=== PATIENT | female | born 2005 | race Caucasian/White ===

== ENCOUNTER 2024-09-04 21:23 | Emergency (ER) | payer OTHER ==
[~2024-09-04] VITALS: Ht 154.9 cm; Wt 76.4 kg
[2024-09-04 21:35] VITALS: TEMP 98.4
[2024-09-04 22:55] LABS: BASO # 0.0 10^3/uL (0.0-0.2); BASO % 0.3 % (0.0-1.0); EOS # 0.0 10^3/uL (0.0-0.5); EOS % 0.2 % (0.0-3.0); LYMPH # 2.0 10^3/uL (1.5-5.0); LYMPH % 18.4 % (24.0-44.0); MONO # 0.7 10^3/uL (0.0-0.8); MONO % 6.9 % (2.0-8.0); NEUTROPHILS # 7.9 10^3/uL (1.5-8.5); NEUTROPHILS % 73.8 % (36.0-66.0); PLATELET COUNT, AUTOMATED 198 10^3/uL (150-450)
[2024-09-04] MEDS: ONDANSETRON 4MG 2ML VIAL IV ONE (22:56)
[2024-09-04] MEDS: MORPHINE 4 MG/ML 1 ML VIAL IV PRN (22:57)
[2024-09-04 23:09] LABS: INR 1.06
[2024-09-04 23:27] LABS: ALT/SGPT 20 U/L (7.0-40); AST/SGOT 18 U/L (<34); CALCIUM LEVEL 8.4 MG/DL (8.5-10.1); CARBON DIOXIDE LEVEL 22 MMOL/L (20-31); CHLORIDE LEVEL 102 MMOL/L (98-107); CREATININE FOR GFR 0.48 MG/DL (0.55-1.30); GLOMERULAR FILTRATION RATE > 90.0 (>60); POTASSIUM SERUM 3.7 MMOL/L (3.5-5.1); SODIUM LEVEL 138 MMOL/L (136-145)
[2024-09-05 01:20] LABS: PLATELET COUNT, AUTOMATED 172 10^3/uL (150-450)
[2024-09-05 02:00] VITALS: BP 95/50
[2024-09-05 02:08] VITALS: O2SAT 98
[2024-09-05] MEDS ORDERED: PERC5TAB12 PO (02:18)
[2024-09-05] MEDS: OXYCODONE/APAP 5MG/325MG(HOME DOSE PACK) PO ONE (03:00)
== END 2024-09-05 03:03 | disposition home or self-care (01) ==
LOC: M ED 21:23 → EDBD 21:23 → M ED 09-05 03:03
DX: O03.4 Incomplete spontaneous abortion without complication (principal); Z79.899 Other long term (current) drug therapy
CPT/HCPCS: 80048; 80076; 83605; 83690; 85025; 85027; 85610; 85730; 86850; 86900; 86901; 93041; 96374; 96375; 96376; 99285; J2405